=== PATIENT | male | born 1955 | race Caucasian/White ===

== ENCOUNTER 2019-02-11 14:26 | Emergency (ER) | payer BC, OTHER ==
[~2019-02-11] VITALS: Ht 167.6 cm; Wt 52.2 kg
[~2019-02-11 14:26] MED LIST changes: -LEVAQUIN 750 M750 MG PO; -SPIRIVA RESPIMAT4 G1 INH
[2019-02-11] MEDS ORDERED: SPIRIVA RESPIMAT4 G1 INH (14:53)
[2019-02-11 15:40] LABS: BE(vivo) 2.7 mmol/L (-2 to +3); HCO3 26.6 mmol/L (22.0-26.0); PCO2 38.6 mmHg (35.0-45.0); PO2 106.5 mmHg (80.0-100.0); pH 7.456 (7.360-7.450); sO2 98.1 % (92.0-98.0)
[2019-02-11 15:56] LABS: HEMATOCRIT 49.2 % (42.0-52.0); HEMOGLOBIN 16.6 gm/dL (14.0-18.0); MCHC 33.8 g/dL (28.0-37.0); MCV 88.6 fL (80.0-100.0); PLATELET COUNT 180 thou/uL (150-400); RBC 5.55 mil/uL (4.50-6.00); RDW 13.8 % (10.5-14.5); WBC 27.1 thou/uL (4.0-11.0)
[2019-02-11 16:10] LABS: CALCIUM 9.4 mg/dL (8.5-10.1); CREATININE 0.8 mg/dL (0.7-1.3)
[2019-02-11 16:23] LABS: ABSOLUTE NEUTROPHILS 24.9 thou/uL (1.4-8.2); PLATELET ESTIMATE NORMAL
[2019-02-11] MEDS ORDERED: LEVAQUIN 750 M750 MG PO (18:19)
[2019-02-11 18:56] VITALS: BP 89/64
--- NOTE | 2019-02-12 07:56 | EKG ---
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1955 Requested By: Kami Barreto Order Number: [id number] MD: Curt Araiza Measurements Intervals [place] Rate: 136 P: 84 WA: 138 QRS: -69 QRSD: 78 T: 87 QT: 260 QTc: 392 Interpretive Statements Sinus tachycardia Left anterior fascicular block Nonspecific ST and T wave abnormality Compared to ECG 04/11/2001 10:26:40 Nonspecific change in the ST and T-wave segments Heart rate has increased Electronically Signed On 02-12-2019 7:56:14 CDT by Curt Araiza [email or web address] <ELECTRONICALLY SIGNED> By: Curt Araiza MD, [facility] 02/12/19 [id number] Curt Araiza MD, [facility] /EPI
== END 2019-02-11 18:55 | disposition home or self-care (01) ==
LOC: ER 14:26
PROVIDERS: Emergency Medicine
DX: J18.9 Pneumonia, unspecified organism (principal); J45.909 Unspecified asthma, uncomplicated

== ENCOUNTER → 2019-02-11 | Outpatient (CLI) | payer BC, OTHER ==
[~2019-02-11] MED LIST: ADVAIRDISKUS; LEVAQUIN 750 M750 MG PO; SINGULAIR; SPIRIVA RESPIMAT4 G1 INH
== END ==
LOC: RAD 13:35
DX: J44.9 Chronic obstructive pulmonary disease, unspecified (principal); J45.50 Severe persistent asthma, uncomplicated; J84.10 Pulmonary fibrosis, unspecified

== ENCOUNTER → 2019-04-23 | Outpatient (CLI) | payer BC, OTHER ==
[~2019-04-23] MED LIST changes: +LEVAQUIN 750 M750 MG PO; +SPIRIVA RESPIMAT4 G1 INH
== END ==
LOC: CAT 09:37
DX: R91.8 Other nonspecific abnormal finding of lung field (principal); I77.819 Aortic ectasia, unspecified site; I25.10 Atherosclerotic heart disease of native coronary artery without angina pectoris; J43.9 Emphysema, unspecified

== ENCOUNTER → 2019-05-02 | Outpatient (CLI) | payer BC, OTHER ==
[2019-05-02 11:15] LABS: CREATININE 0.7 mg/dL (0.7-1.3)
== END ==
LOC: LABMALL 09:27
PROVIDERS: Internal Medicine
DX: M79.89 Other specified soft tissue disorders (principal); R91.8 Other nonspecific abnormal finding of lung field

== ENCOUNTER → 2019-05-03 | Outpatient (CLI) | payer BC, OTHER | LOC: CAT 08:38 | DX: R91.8 Other nonspecific abnormal finding of lung field (principal); J43.9 Emphysema, unspecified ==

== ENCOUNTER 2019-10-13 13:31 | Inpatient (IN) | payer BC, OTHER ==
[~2019-10-13] VITALS: Ht 167.6 cm; Wt 58.8 kg
[~2019-10-13 13:31] MED LIST changes: -SINGULAIR; +SINGULAIR 10 MG10 M1 PO
[2019-10-13 13:40] VITALS: BP 109/73
[2019-10-13 14:08] LABS: HEMATOCRIT 47.7 % (42.0-52.0); HEMOGLOBIN 16.2 gm/dL (14.0-18.0); MCH 29.4 pg (26.0-34.0); MCHC 33.9 g/dL (28.0-37.0); MCV 86.7 fL (80.0-100.0); PLATELET COUNT 235 thou/uL (150-400); RDW 15.1 % (10.5-14.5); WBC 22.5 thou/uL (4.0-11.0)
[2019-10-13 14:18] LABS: URINE BILIRUBIN NEGATIVE (Negative); URINE BLOOD TRACE (Negative); URINE CLARITY CLEAR; URINE COLOR YELLOW; URINE GLUCOSE-RANDOM* NEGATIVE (Negative); URINE KETONES NEGATIVE (Negative); URINE LEUKOCYTES-REFLEX NEGATIVE (Negative); URINE NITRITE-REFLEX NEGATIVE (Negative); URINE PROTEIN (DIPSTICK) NEGATIVE (Negative); URINE UROBILINOGEN 0.2 E.U./dl (0.2-1.0)
[2019-10-13 14:40] LABS: ANION GAP 7 mmol/L (7-16); BUN 13 mg/dL (7-18); CALCIUM 8.7 mg/dL (8.5-10.1); CHLORIDE 96 mmol/L (98-107); CO2 29 mmol/L (21-32); CREATININE 0.8 mg/dL (0.7-1.3); GLUCOSE 140 mg/dL (74-106); POTASSIUM 3.9 mmol/L (3.5-5.1); SODIUM 132 mmol/L (136-145)
[2019-10-13 14:50] LABS: ALBUMIN 3.7 g/dL (3.4-5.0); LIPASE 94 U/L (73-393); SGOT 14 U/L (15-37); SGPT 21 U/L (30-65); TOTAL BILIRUBIN 1.5 mg/dL (0.2-1.0); TOTAL PROTEIN 7.3 g/dL (6.4-8.2); TROPONIN-I <0.06 ng/mL (<0.06)
[2019-10-13 15:16] LABS: ABSOLUTE NEUTROPHILS 19.4 thou/uL (1.4-8.2)
[2019-10-13 15:17] LABS: TOXIC GRANULATION 1+
[2019-10-13 16:35] LABS: APTT 29.1 Seconds (24.5-32.8); PROTIME 10.3 Seconds (9.3-11.4)
[2019-10-13 17:46] VITALS: BP 137/80
[2019-10-13 18:06] VITALS: BP 128/80
[2019-10-13 19:00] VITALS: BP 149/76
[2019-10-13 20:34] VITALS: BP 132/84
[2019-10-13] MEDS ORDERED: BREO ELLIPTA 21 EACH INH (20:46)
[2019-10-13] MEDS ORDERED: XANAX 0.5 MG0.5 MG PO (20:49)
[2019-10-13] MEDS ORDERED: ONE DAILY FOR1 EACH PO (20:51)
[2019-10-13 23:00] VITALS: BP 125/82
[2019-10-14 04:15] VITALS: BP 136/82
[2019-10-14 07:55] VITALS: BP 112/88
--- NOTE | 2019-10-14 09:00 | EKG ---
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 : 1955 Requested By: Phuc Whitney Order Number: [id number] MD: Curt Araiza Measurements Intervals [place] Rate: 126 P: 85 MN: 116 QRS: -60 QRSD: 83 T: 82 QT: 284 QTc: 412 Interpretive Statements Sinus tachycardia Leftward axis Right atrial abnormality RSR' in V1 or V2, probably normal variant Compared to ECG 02/11/2019 15:04:27 ST and T wave abnormalities less pronounced Electronically Signed On 10-14-2019 8:57:57 CDT by Curt Araiza [email or web address] <ELECTRONICALLY SIGNED> By: Curt Araiza MD, [facility] 10/14/19 [id number] Curt Araiza MD, [facility] /EPI
[2019-10-14] MEDS ORDERED: XOPENEX1.25 MG/3 INH (11:07)
[2019-10-14 12:10] VITALS: BP 134/82
[2019-10-14 16:00] VITALS: BP 145/75
[2019-10-14 19:54] VITALS: BP 130/82
[2019-10-14 22:57] VITALS: BP 133/83
[2019-10-15 05:19] LABS: HEMATOCRIT 43.7 % (42.0-52.0); HEMOGLOBIN 14.6 gm/dL (14.0-18.0); MCH 29.4 pg (26.0-34.0); MCHC 33.4 g/dL (28.0-37.0); RBC 4.97 mil/uL (4.50-6.00); RDW 15.4 % (10.5-14.5); WBC 20.9 thou/uL (4.0-11.0)
[2019-10-15 05:21] VITALS: BP 119/82
[2019-10-15 05:21] LABS: CALCIUM 8.7 mg/dL (8.5-10.1); CREATININE 0.8 mg/dL (0.7-1.3); POTASSIUM 3.9 mmol/L (3.5-5.1)
[2019-10-15 08:20] VITALS: BP 113/80
[2019-10-15 12:00] VITALS: BP 129/85
[2019-10-15 16:05] VITALS: BP 140/76
[2019-10-15 19:53] VITALS: BP 142/2
[2019-10-16 04:59] VITALS: BP 134/93
[2019-10-16 08:00] VITALS: BP 136/79
[2019-10-16 10:53] LABS: HEMATOCRIT 42.5 % (42.0-52.0); MCH 29.1 pg (26.0-34.0); MCHC 32.9 g/dL (28.0-37.0); MCV 88.5 fL (80.0-100.0); RBC 4.8 mil/uL (4.50-6.00); RDW 15.1 % (10.5-14.5)
[2019-10-16 10:59] LABS: ALBUMIN 2.5 g/dL (3.4-5.0); CALCIUM 8.6 mg/dL (8.5-10.1); CREATININE 0.7 mg/dL (0.7-1.3); PHOSPHORUS 2.5 mg/dL (2.5-4.9)
[2019-10-16 12:00] VITALS: BP 140/73
[2019-10-16 16:00] VITALS: BP 135/65
[2019-10-16 20:20] VITALS: BP 154/90
[2019-10-17 04:00] VITALS: BP 135/82
[2019-10-17 05:31] LABS: HEMATOCRIT 38.2 % (42.0-52.0); HEMOGLOBIN 12.6 gm/dL (14.0-18.0); MCH 29.4 pg (26.0-34.0); MCHC 33.1 g/dL (28.0-37.0); MCV 88.9 fL (80.0-100.0); RBC 4.3 mil/uL (4.50-6.00); WBC 7.9 thou/uL (4.0-11.0)
[2019-10-17 06:25] LABS: ALBUMIN 2.2 g/dL (3.4-5.0); CALCIUM 8.4 mg/dL (8.5-10.1); CREATININE 0.6 mg/dL (0.7-1.3); PHOSPHORUS 2.4 mg/dL (2.5-4.9); POTASSIUM 3.6 mmol/L (3.5-5.1)
[2019-10-17 07:41] VITALS: BP 132/82
[2019-10-17 12:00] VITALS: BP 138/81
[2019-10-17 16:11] VITALS: BP 135/87
[2019-10-17 19:58] VITALS: BP 141/73
[2019-10-18 04:45] VITALS: BP 150/79
[2019-10-18 05:19] LABS: HEMATOCRIT 38.7 % (42.0-52.0); HEMOGLOBIN 12.7 gm/dL (14.0-18.0); MCH 29.1 pg (26.0-34.0); MCHC 32.7 g/dL (28.0-37.0); RBC 4.35 mil/uL (4.50-6.00); RDW 14.7 % (10.5-14.5); WBC 8.8 thou/uL (4.0-11.0)
[2019-10-18 05:36] LABS: ALBUMIN 2.3 g/dL (3.4-5.0); ANION GAP < 0 mmol/L (7-16); BUN 6 mg/dL (7-18); CALCIUM 8.5 mg/dL (8.5-10.1); CHLORIDE 105 mmol/L (98-107); CO2 44 mmol/L (21-32); CREATININE 0.6 mg/dL (0.7-1.3); GLUCOSE 121 mg/dL (74-106); PHOSPHORUS 2.9 mg/dL (2.5-4.9); POTASSIUM 3.4 mmol/L (3.5-5.1); SODIUM 148 mmol/L (136-145)
[2019-10-18 08:16] VITALS: BP 145/81
[2019-10-18 12:25] LABS: ANION GAP < 0 mmol/L (7-16); BUN 6 mg/dL (7-18); CALCIUM 9.2 mg/dL (8.5-10.1); CHLORIDE 103 mmol/L (98-107); CO2 43 mmol/L (21-32); CREATININE 0.7 mg/dL (0.7-1.3); GLUCOSE 108 mg/dL (74-106); POTASSIUM 3.2 mmol/L (3.5-5.1); SODIUM 145 mmol/L (136-145)
[2019-10-18 12:36] VITALS: BP 128/74
[2019-10-18 17:22] VITALS: BP 139/80
[2019-10-18 20:30] VITALS: BP 149/82
[2019-10-19 05:30] VITALS: BP 150/80
[2019-10-19 06:09] LABS: ALBUMIN 2.3 g/dL (3.4-5.0); CALCIUM 8.5 mg/dL (8.5-10.1); CREATININE 0.6 mg/dL (0.7-1.3); MAGNESIUM 1.9 mg/dL (1.8-2.4); PHOSPHORUS 3.1 mg/dL (2.5-4.9); POTASSIUM 3.4 mmol/L (3.5-5.1); TOTAL BILIRUBIN 0.5 mg/dL (0.2-1.0); TOTAL PROTEIN 5.7 g/dL (6.4-8.2)
[2019-10-19 07:22] VITALS: BP 133/78
[2019-10-19 11:33] VITALS: BP 151/76
[2019-10-19 15:25] VITALS: BP 149/82
[2019-10-19 19:30] VITALS: BP 152/81
[2019-10-20 05:25] VITALS: BP 134/68
[2019-10-20 06:09] LABS: CALCIUM 8.4 mg/dL (8.5-10.1); CREATININE 0.6 mg/dL (0.7-1.3); MAGNESIUM 1.8 mg/dL (1.8-2.4); PHOSPHORUS 3.1 mg/dL (2.5-4.9); POTASSIUM 3.2 mmol/L (3.5-5.1)
[2019-10-20 08:00] VITALS: BP 145/87
[2019-10-20 17:00] VITALS: BP 148/80
[2019-10-20 19:42] VITALS: BP 143/84
[2019-10-21 04:13] VITALS: BP 131/79
[2019-10-21 06:42] LABS: ALBUMIN 2.3 g/dL (3.4-5.0); ANION GAP < 0 mmol/L (7-16); BUN 7 mg/dL (7-18); CALCIUM 8.8 mg/dL (8.5-10.1); CHLORIDE 102 mmol/L (98-107); CO2 43 mmol/L (21-32); CREATININE 0.7 mg/dL (0.7-1.3); GLUCOSE 129 mg/dL (74-106); MAGNESIUM 1.9 mg/dL (1.8-2.4); PHOSPHORUS 3.3 mg/dL (2.5-4.9); SGOT 20 U/L (15-37); SGPT 21 U/L (30-65); SODIUM 143 mmol/L (136-145); TOTAL BILIRUBIN 0.5 mg/dL (0.2-1.0); TOTAL PROTEIN 6.1 g/dL (6.4-8.2)
[2019-10-21 06:45] LABS: POTASSIUM 2.8 mmol/L (3.5-5.1)
[2019-10-21 08:00] VITALS: BP 134/88
[2019-10-21 12:30] VITALS: BP 151/79
[2019-10-21 16:00] VITALS: BP 115/78
[2019-10-21 19:28] VITALS: BP 139/94
[2019-10-22 00:01] VITALS: BP 112/70
[2019-10-22 00:53] VITALS: BP 128/72
[2019-10-22 06:01] LABS: CREATININE 0.6 mg/dL (0.7-1.3); PHOSPHORUS 3.5 mg/dL (2.5-4.9); POTASSIUM 3.5 mmol/L (3.5-5.1)
[2019-10-22 08:00] VITALS: BP 126/73
[2019-10-22 16:00] VITALS: BP 121/73
[2019-10-22 22:00] VITALS: BP 128/76
[2019-10-23 05:44] LABS: HEMATOCRIT 42.3 % (42.0-52.0); MCH 29.2 pg (26.0-34.0); MCV 88.4 fL (80.0-100.0); RBC 4.79 mil/uL (4.50-6.00); RDW 15.1 % (10.5-14.5); WBC 14.4 thou/uL (4.0-11.0)
[2019-10-23 05:47] LABS: ALBUMIN 2.5 g/dL (3.4-5.0); CREATININE 0.7 mg/dL (0.7-1.3); PHOSPHORUS 3.4 mg/dL (2.5-4.9); POTASSIUM 3.6 mmol/L (3.5-5.1)
[2019-10-23 19:04] VITALS: BP 140/84
[2019-10-24 05:49] LABS: HEMATOCRIT 42.4 % (42.0-52.0); HEMOGLOBIN 13.9 gm/dL (14.0-18.0); MCH 29.1 pg (26.0-34.0); MCHC 32.8 g/dL (28.0-37.0); MCV 88.7 fL (80.0-100.0); RBC 4.77 mil/uL (4.50-6.00); RDW 15.1 % (10.5-14.5); WBC 12.8 thou/uL (4.0-11.0)
[2019-10-24 06:17] LABS: CALCIUM 9.2 mg/dL (8.5-10.1); CREATININE 0.6 mg/dL (0.7-1.3); MAGNESIUM 1.9 mg/dL (1.8-2.4); PHOSPHORUS 3.8 mg/dL (2.5-4.9); POTASSIUM 3.9 mmol/L (3.5-5.1)
[2019-10-24 18:35] VITALS: BP 144/68
[2019-10-24 19:54] VITALS: BP 137/83
[2019-10-25 04:30] VITALS: BP 103/73
[2019-10-25] MEDS ORDERED: AUGMENTIN 875-1 EACH PO (06:42)
[2019-10-25] MEDS ORDERED: FLAGYL500 M1 PO (06:42)
[2019-10-25 07:39] VITALS: BP 128/75
[2019-10-25 09:42] VITALS: BP 128/75
== END 2019-10-25 11:34 | disposition home or self-care (01) | DRG 872 ==
LOC: ER 13:31 → EROBS 16:21 → 2N 16:21 → 4S 10-22 22:06
PROVIDERS: Emergency Medicine; Internal Medicine Pulmonary Disease; Surgery; ADMIT Surgery; ATTEND Surgery
PROC: 02HV33Z Insertion of Infusion Device into Superior Vena Cava, Percutaneous Approach (ICD-10-PCS; principal; 2019-10-17)
PROC: 0D9670Z Drainage of Stomach with Drainage Device, Via Natural or Artificial Opening (ICD-10-PCS; 2019-10-25)
DX: A41.9 Sepsis, unspecified organism (principal); K56.7 Ileus, unspecified; K56.609 Unspecified intestinal obstruction, unspecified as to partial versus complete obstruction; K57.20 Diverticulitis of large intestine with perforation and abscess without bleeding; J45.909 Unspecified asthma, uncomplicated; J44.9 Chronic obstructive pulmonary disease, unspecified; Z20.828 Contact with and (suspected) exposure to other viral communicable diseases; Z87.442 Personal history of urinary calculi; Z88.1 Allergy status to other antibiotic agents
CPT/HCPCS: 10081; 10195; 27000